=== PATIENT | female | born 1970 | race Caucasian/White ===

== ENCOUNTER → 2017-08-18 | Outpatient (CLI) | payer OTHER ==
[~2017-08-18] MED LIST: ADDE5XR PO; BIOTCAP PO; DIPH-148 PO; MAGN400T2 PO; MOBI15TA PO; TRAM50TA PO; WALKER WHEELS/F1 MIS
== END ==
LOC: CPRE 11:26
PROVIDERS: ATTEND Orthopaedic Surgery Orthopaedic Surgery of the Spine
DX: Z01.810 Encounter for preprocedural cardiovascular examination (principal); Z01.812 Encounter for preprocedural laboratory examination; Z01.818 Encounter for other preprocedural examination; M16.9 Osteoarthritis of hip, unspecified

== ENCOUNTER 2017-08-24 06:28 | Inpatient (IN) | payer OTHER ==
[~2017-08-24] VITALS: Ht 160 cm; Wt 65.2 kg
[~2017-08-24 06:28] MED LIST changes: -DIPH-148 PO; -TRAM50TA PO; -WALKER WHEELS/F1 MIS
[2017-08-24] MEDS ORDERED: DIPH-148 PO (07:17)
[2017-08-24] MEDS ORDERED: VANCOMYCIN 1 GM/200 ML INJ 200 ML IV ONE (07:20)
[2017-08-24 07:35] LABS: AUTOMATED NEUTROPHIL # 4.7 TH/MM3 (1.8-7.7); BASOPHIL # 0.1 TH/MM3 (0-0.2); BASOPHIL % 0.9 % (0.0-2.0); EOSINOPHIL # 0.4 TH/MM3 (0-0.4); EOSINOPHIL % 4.4 % (0.0-4.0); HEMOGLOBIN 13.1 GM/DL (11.6-15.3); LYMPH % 28.3 % (9.0-44.0); LYMPHOCYTE # 2.3 TH/MM3 (1.0-4.8); MEAN CORPUSCULAR HEMOGLOBIN 30.4 PG (27.0-34.0); MEAN CORPUSCULAR HGB CONC 34.6 % (32.0-36.0); MEAN PLATELET VOLUME 8.2 FL (7.0-11.0); MONO % 7.8 % (0.0-8.0); MONOCYTE # 0.6 TH/MM3 (0-0.9); NEUT % 58.6 % (16.0-70.0); PLATELET COUNT 294 TH/MM3 (150-450); RED BLOOD COUNT 4.32 MIL/MM3 (4.00-5.30); RED CELL DISTRIBUTION WIDTH 12.7 % (11.6-17.2); WHITE BLOOD COUNT 8.1 TH/MM3 (4.0-11.0)
[2017-08-24] MEDS ORDERED: ceFAZolin 2 GM PREMIX 50 ML IV SCH (07:45)
[2017-08-24] MEDS ORDERED: VANCOMYCIN 1000 MG/NS 250 ML (for <70 kg) IV SCH ×2 (07:45)
[2017-08-24] MEDS ORDERED: CHLORHEXIDINE GLUCONATE 2 % 1 PACK (2 CLOTHS) TOPICAL PRN (07:45)
[2017-08-24] MEDS ORDERED: SODIUM CHLORID 0.9% 500 ML IV PRN (07:45)
[2017-08-24] MEDS ORDERED: CHLORHEXIDINE GLUCONATE 4% SOLN 120 ML BTL TOPICAL SCH (07:45)
[2017-08-24] MEDS ORDERED: LACTATED RINGER'S 1000 ML IV PRN (07:45)
[2017-08-24] MEDS ORDERED: METOPROLOL TARTRATE 25 MG TAB PO PRN (07:45)
[2017-08-24] MEDS ORDERED: POVIDONE IODINE 5% (ANTISEPSIS KIT) 4 APPLICATIONS EACH NARE PRN (07:45)
[2017-08-24] MEDS ORDERED: ACETAMINOPHEN 1000 MG/100 ML 100 ML IV ONE (07:49)
[2017-08-24] MEDS ORDERED: GENTAMICIN SULFATE 80 MG/2 ML VIAL ONE ×2 (08:20)
[2017-08-24] MEDS ORDERED: BUPIVACAINE PF 0.75% DEX-WATER INJ 2 ML AMP ONE (08:23)
[2017-08-24] MEDS ORDERED: PROPOFOL 500 MG/50 ML INJ 50 ML ONE (09:00)
[2017-08-24] MEDS ORDERED: EXPAREL PERI-ARTICULAR INJECTION (TOTAL VOL. 60 ML) P-ARTICULR SCH ×4 (10:00)
[2017-08-24] MEDS ORDERED: SODIUM CHLORIDE 0.9% IV SCH (10:00)
[2017-08-24] MEDS ORDERED: TRANEXAMIC ACID IV SCH (10:00)
[2017-08-24] MEDS ORDERED: BUPIVACAINE/EPINEPHRINE 0.5% PF 10 ML VIAL ONE (10:10)
--- NOTE | 2017-08-24 11:39 | PD.OP ---
cc: Germain Solitario MD; Ulises Solitario MD Operative Report Date of Surgery: Aug 24, 2017 Preoperative Diagnosis: Osteoarthritis right hip Postoperative Diagnosis: Same Procedure: Right total hip replacement arthroplasty Anesthesia: Spinal Surgeon: Ulises Solitario Club Manager(s): Germain Solitario Operation and Findings: EBL: 800 cc INDICATION: This patient presents with significant hip pain related to osteoarthritis of the right hip. Despite extensive conservative care this patient continues to be painful and now presents for surgical treatment. NOTE: Germain Solitario was present for the entire surgical procedure as my director of first impressions. In my medical opinion his skill and care was necessary for the proper management of this patient. COMPONENTS: COMPANY: [employer] CUP: [place], 46, 100 series, gription surface LINER: Altrx 28 neutral, neutral STEM: [place], size 8, standard offset, hydroxyapatite-coated HEAD: 28, +1.5, ceramic, 12/14 taper PROCEDURE: This patient was brought to the operating room and anesthetized in the supine position and positioned on the fracture table with both legs held extended. The right hip and leg was scrubbed with alcohol followed by Hibiclens followed by ChloraPrep and draped sterilely. Antibiotics were given within routine time window and a timeout was done. A 4 inch incision was made starting 2 cm distal and 2 cm lateral to the anterior superior iliac spine. The fascia andres was opened longitudinally. The interval between the fascia andres and the rectus was opened down to the capsule of the hip joint. Retractors were positioned allowing good visualization of the capsule. This was opened longitudinally and flaps were created. Stay sutures were utilized. Exposure was excellent. The neck was cut at the proper location using fluoroscopy as a guide. The head was removed. Deep retractors were positioned allowing good visualization of the acetabulum. Acetabulum was deepened down to the floor starting with a proper size reamer and reaming up to 45 mm. A trial was utilized. Fluoroscopy was used to check position and confirmed satisfactory alignment. The rim was reamed with a 46 mm reamer and the final cup was positioned in approximately 20 of anteversion and 40-45 of abduction. Position was satisfactory. A single hole eliminator was positioned followed by the final liner. The lifting hook was utilized. The leg was dropped to the floor, maximally externally rotated and brought across the midline. Retractors were positioned. A box osteotome was utilized followed by progressive broaching to the proper stem size. Trial reduction showed excellent alignment and fit. With 60 of external rotation the leg was dropped to the floor without evidence of anterior subluxation. The wound was irrigated. The final stem was inserted and was found to be very stable. The final reduction using the final head. Stability was as previously noted. Intraoperative x-rays were taken. The wound was irrigated copiously. Hemostasis was controlled. Local anesthesia was utilized. The capsule was repaired with #2 Tycron sutures. A drain was brought out through a separate stab incision. the fascia andres was repaired with running 0 PDS on a loop. Subcutaneous tissue was approximated with 2-0 Vicryl and skin with running intradermal 3-0 Vicryl followed by Steri- Strips. A sterile dressing was applied. The patient was awakened and taken to the recovery room in satisfactory condition. FINDINGS: There was severe osteoarthritis of the right hip. There was no complication. Alignment appeared satisfactory Ulises Solitario MD Aug 24, 2017 11:39
[2017-08-24] MEDS: LACTATED RINGER'S 1000 ML INJ 1,000 ML IV SCH (11:59)
[2017-08-24] MEDS ORDERED: ePHEDrine/NS 25 MG/5 ML SYRINGE IV ONE (12:00)
[2017-08-24] MEDS ORDERED: DEXTROAMPHETAMINE/AMPHETAMINE XR 5 MG CAP PO PRN (12:00)
[2017-08-24] MEDS ORDERED: Post-op Orders (for Pharmacy) XX ONE (12:00)
[2017-08-24] MEDS ORDERED: DEXAMETHASONE SOD PHOS 4 MG/ML VIAL IV ONE (12:00)
[2017-08-24] MEDS ORDERED: ceFAZolin INJ 1,000 MG VIAL IV ONE (12:00)
[2017-08-24] MEDS ORDERED: ROCURONIUM INJ 50 MG/5 ML SYRINGE IV PUSH ONE (12:00)
[2017-08-24] MEDS ORDERED: LACTATED RINGER'S 1000 ML INJ 3,000 ML IV ONE (12:00)
[2017-08-24] MEDS ORDERED: MORPHINE SULFATE 8 MG/ML INJ IM PRN (12:00)
[2017-08-24] MEDS ORDERED: ALUMINUM/MAGNESIUM/SIMETH 30 ML CUP PO PRN (12:00)
[2017-08-24] MEDS ORDERED: ACETAMINOPHEN/HYDROcodone 325 MG/7.5 MG TAB PO PRN (12:00)
[2017-08-24] MEDS ORDERED: PROPOFOL 200 MG/20 ML AMP IV ONE (12:00)
[2017-08-24] MEDS ORDERED: LIDOCAINE HCL 1% PF 5 ML SYRINGE OTHER ONE (12:00)
[2017-08-24] MEDS ORDERED: ONDANSETRON HCL 4 MG/2 ML VIAL IV ONE (12:00)
[2017-08-24] MEDS ORDERED: PHENYLEPH/NS 1000 MCG/10 ML SYR IV ONE (12:00)
[2017-08-24] MEDS ORDERED: DO NOT ADM ANY ANTICOAGULANT DRUGS PRN (12:13)
--- NOTE | 2017-08-24 12:21 | HHI.FF ---
Face to Face Verification Diagnosis: (1) Osteoarthritis of right hip Physical Therapy Gait training Hip: Total hip, Protocol: Right, Progress to weight bearing Right LE Weight Bearing: WB as tolerated Right LE Range of Motion: Active ROM Nursing Dressing Changes: Do not change dressing I have seen patient Romy Bermeo on 08/24/17. My clinical findings support the need for the requested home health care services because: Ltd mobility - disease progression I certify that my clinical findings support that this patient is homebound because: Post-op weakness Germain Solitario MD Aug 24, 2017 12:21
[2017-08-24] MEDS ORDERED: MIDAZOLAM HCL 2 MG/2 ML VIAL ONE (12:22)
[2017-08-24] MEDS ORDERED: *MEPERIDINE 25 MG INJ VIAL PERIprocedural Use ONLY ONE (12:22)
--- NOTE | 2017-08-24 15:27 | RADRPT ---
EXAM DATE: 08/24/2017 2:16 PM EDT AGE/SEX: 46 years / Female INDICATIONS: Right anterior hip replacement. CLINICAL DATA: This is the patient's initial encounter. Patient reports that signs and symptoms have been present for 1 day and indicates a pain score of Nonresponsive. MEDICAL/SURGICAL HISTORY: None. Hysterectomy. COMPARISON: No prior exams available for comparison. FINDINGS: 2 images from the OR have been submitted. There is a right bipolar hip prosthesis in place. The hardw are appears well placed. CONCLUSION: Successful placement of a bipolar hip prosthesis. Electronically signed by: Gutierrez Crandall MD 08/24/2017 3:25 PM EDT
[2017-08-24] MEDS: ACETAMINOPHEN/HYDROcodone 325 MG/7.5 MG TAB PO PRN ×2 (15:32→20:47)
[2017-08-24 16:00] VITALS: BP 104/59; PULSE 78; RESP 18; TEMP 98.1; O2SAT 99
[2017-08-24] MEDS: ONDANSETRON ODT 4 MG TAB SL PRN ×2 (16:12→22:07)
[2017-08-24] MEDS ORDERED: WALKER WHEELS/F1 MIS (16:20)
[2017-08-24 19:57] VITALS: BP 109/53; PULSE 84; RESP 17; TEMP 98.6; O2SAT 96
[2017-08-24] MEDS: ASPIRIN EC 81 MG TABEC PO SCH (20:46)
[2017-08-24] MEDS: ZOLPIDEM TARTRATE 5 MG TAB PO PRN (22:09)
[2017-08-25 00:01] VITALS: BP 101/51; PULSE 85; RESP 17; TEMP 98.4; O2SAT 96
[2017-08-25] MEDS: LACTATED RINGER'S 1000 ML INJ 1,000 ML IV SCH ×2 (00:29→12:59)
[2017-08-25 04:00] VITALS: BP 116/56; PULSE 86; RESP 18; TEMP 98.7; O2SAT 99
[2017-08-25] MEDS: ONDANSETRON ODT 4 MG TAB SL PRN ×2 (04:03→12:45)
[2017-08-25 06:18] LABS: HEMATOCRIT 23.3 % (35.0-46.0); HEMOGLOBIN 7.8 GM/DL (11.6-15.3)
[2017-08-25 08:00] VITALS: BP 110/53; PULSE 87; RESP 16; TEMP 98.3; O2SAT 97
--- NOTE | 2017-08-25 08:02 | PD.ORT.PN ---
Subjective Subjective Remarks Looks good. Nausea with some low blood pressure when out of bed. Request tramadol Objective Vitals Vital Signs Date Time Temp Pulse Resp B/P (MAP) Pulse Ox O2 Delivery O2 Flow Rate FiO2 08/25/17 04:00 98.7 86 18 116/56 (76) 99 08/25/17 00:01 98.4 85 17 101/51 (68) 96 08/24/17 19:57 98.6 84 17 109/53 (71) 96 08/24/17 16:00 98.1 78 18 104/59 (74) 99 08/24/17 14:00 97.7 86 14 115/57 (76) 100 Room Air 08/24/17 13:30 97.7 85 14 103/58 (73) 99 08/24/17 13:00 97.7 88 14 107/53 (71) 98 Nasal Cannula 2 08/24/17 12:45 97.7 86 14 110/58 (75) 98 Nasal Cannula 4 08/24/17 12:30 97.7 78 14 112/53 (72) 100 Nasal Cannula 4 08/24/17 12:15 97.7 80 14 111/56 (74) 98 Nasal Cannula 4 I/O 08/24/17 08/24/17 08/24/17 08/25/17 08/25/17 08/25/17 07:00 15:00 23:00 07:00 15:00 23:00 Intake Total 3500 ml 900 ml 2100 ml Output Total 1740 ml 1280 ml 30 ml Balance 1760 ml -380 ml 2070 ml Intake Oral 800 ml IV Total 100 ml 2100 ml Other 3500 ml Output Urine Total 900 ml 1200 ml Drainage Total 40 ml 80 ml 30 ml Estimated Blood Loss 800 ml # Voids 5 Result Diagram: 08/25/17 0555 Objective Remarks Dressing dry. Minimal drainage from drain. No calf tenderness. Sensation normal. Motor examination normal Assessment & Plan Assessment and Plan Osteoarthritis right hip. SURGERY: Right GLADYS, direct anterior: POD #1. PLAN: Change to tramadol. Aspirin for anticoagulation. No dressing change. Weightbearing as tolerated. Discharge to home later today or tomorrow. Orthopedically stable Ulises Solitario MD Aug 25, 2017 08:02
[2017-08-25] MEDS ORDERED: TRAM50TA PO (08:05)
[2017-08-25] MEDS: ASPIRIN EC 81 MG TABEC PO SCH ×2 (08:09→19:58)
[2017-08-25] MEDS ORDERED: traMADol/ACETAMINOPHEN 37.5/325 1 TAB PO PRN (08:15)
[2017-08-25] MEDS: traMADol/ACETAMINOPHEN 37.5/325 1 TAB PO PRN ×4 (09:29→23:43)
[2017-08-25 12:00] VITALS: BP 112/58; PULSE 100; RESP 18; TEMP 99.2; O2SAT 96
[2017-08-25] MEDS: DOCUSATE SODIUM 100 MG CAP PO SCH (19:57)
[2017-08-25] MEDS: FERROUS SULFATE 325 MG (65 MG ELEMENTAL IRON) TAB PO SCH (19:58)
[2017-08-25 20:00] VITALS: BP 114/56; PULSE 91; RESP 18; TEMP 99.1; O2SAT 94
[2017-08-25] MEDS: ZOLPIDEM TARTRATE 5 MG TAB PO PRN (23:42)
[2017-08-26] VITALS: BP 107/59; PULSE 86; RESP 20; TEMP 98.2; O2SAT 97
[2017-08-26] MEDS: LACTATED RINGER'S 1000 ML INJ 1,000 ML IV SCH (01:29)
[2017-08-26] MEDS: traMADol/ACETAMINOPHEN 37.5/325 1 TAB PO PRN ×3 (05:59→16:07)
[2017-08-26 08:00] VITALS: BP 105/58; PULSE 95; RESP 18; TEMP 98.7; O2SAT 95
--- NOTE | 2017-08-26 08:20 | PD.ORT.PN ---
Subjective Post Op Day #: 2 Subjective Remarks Patient resting comfortably in bed with decreased pain from yesterday. Patient states dizziness has improved. Objective Vitals Vital Signs Date Time Temp Pulse Resp B/P (MAP) Pulse Ox O2 Delivery O2 Flow Rate FiO2 08/26/17 00:00 98.2 86 20 107/59 (75) 97 08/25/17 20:00 99.1 91 18 114/56 (75) 94 08/25/17 12:00 99.2 100 18 112/58 (76) 96 I/O 08/25/17 08/25/17 08/25/17 08/26/17 08/26/17 08/26/17 07:00 15:00 23:00 07:00 15:00 23:00 Intake Total 2100 ml 1100 ml 720 ml Output Total 30 ml Balance 2070 ml 1100 ml 720 ml Intake Oral 720 ml IV Total 2100 ml 1100 ml Drainage Total 30 ml # Voids 5 3 Result Diagram: 08/25/17 0555 Objective Remarks Dressing clean, dry, and intact. Drain pulled. No calf tenderness. Sensation normal. Motor examination normal Assessment & Plan Ortho Post Op Day #: 2 Problem List: Assessment and Plan Osteoarthritis right hip. SURGERY: Right GLADYS, direct anterior: POD #2. PLAN: Change to tramadol. Aspirin for anticoagulation. No dressing change. Weightbearing as tolerated. Orthopedically stable Repeat H&H today. If stable, patient can be discharged home with this afternoon. Gurpreet Zhang Aug 26, 2017 08:20
[2017-08-26 09:53] LABS: AUTOMATED NEUTROPHIL # 8.5 TH/MM3 (1.8-7.7); BASOPHIL % 0.3 % (0.0-2.0); EOSINOPHIL # 0.3 TH/MM3 (0-0.4); EOSINOPHIL % 2.1 % (0.0-4.0); HEMATOCRIT 23.1 % (35.0-46.0); HEMOGLOBIN 7.7 GM/DL (11.6-15.3); LYMPH % 20.3 % (9.0-44.0); LYMPHOCYTE # 2.5 TH/MM3 (1.0-4.8); MEAN CELL VOLUME 91.1 FL (80.0-100.0); MEAN CORPUSCULAR HEMOGLOBIN 30.4 PG (27.0-34.0); MEAN CORPUSCULAR HGB CONC 33.3 % (32.0-36.0); MEAN PLATELET VOLUME 8.2 FL (7.0-11.0); MONO % 7.1 % (0.0-8.0); MONOCYTE # 0.9 TH/MM3 (0-0.9); NEUT % 70.2 % (16.0-70.0); PLATELET COUNT 200 TH/MM3 (150-450); RED BLOOD COUNT 2.54 MIL/MM3 (4.00-5.30); RED CELL DISTRIBUTION WIDTH 12.7 % (11.6-17.2); WHITE BLOOD COUNT 12.1 TH/MM3 (4.0-11.0)
[2017-08-26] MEDS: DOCUSATE SODIUM 100 MG CAP PO SCH (10:17)
[2017-08-26] MEDS: ASPIRIN EC 81 MG TABEC PO SCH (10:17)
[2017-08-26] MEDS: FERROUS SULFATE 325 MG (65 MG ELEMENTAL IRON) TAB PO SCH (10:17)
[2017-08-26] MEDS: ONDANSETRON ODT 4 MG TAB SL PRN (10:18)
== END 2017-08-26 18:09 | disposition home or self-care (01) | DRG 470 ==
LOC: HSDI 06:28 → N06B 14:35
PROVIDERS: ADMIT Orthopaedic Surgery Orthopaedic Surgery of the Spine; ATTEND Orthopaedic Surgery Orthopaedic Surgery of the Spine
PROC: 0SR904A Replacement of Right Hip Joint with Ceramic on Polyethylene Synthetic Substitute, Uncemented, Open Approach (ICD-10-PCS; principal; 2017-08-24 09:31)
DX: M16.11 Unilateral primary osteoarthritis, right hip (principal); I95.9 Hypotension, unspecified; R42 Dizziness and giddiness; F41.9 Anxiety disorder, unspecified; Z85.828 Personal history of other malignant neoplasm of skin; M54.2 Cervicalgia; M54.9 Dorsalgia, unspecified
CPT/HCPCS: 73502; 76000; 85014; 85018; 85025; 86850; 86900; 86901; 86920; 94150; C1776; C9290; J0131; J0690; J1100; J1580; J2175; J2250; J2370; J2405; J3010; J3370; J7050; J7120